=== PATIENT | male | born 1975 | race Caucasian/White ===

== ENCOUNTER 2025-07-03 15:17 | Inpatient (IN) | payer OTHER ==
[~2025-07-03] VITALS: Ht 170.2 cm; Wt 82.0 kg
[2025-07-03] MEDS ORDERED: DEXTROSE 50%-WATER 25 GM/50 ML SYRINGE IVP PRN (16:45)
[2025-07-03 17:01] LABS: PLATELET COUNT (AUTO) 255 K/uL (150-450); RED BLOOD CELL COUNT(AUTO) 4.73 MIL/uL (4.50-5.90); RED CELL DISTRIBUTION WIDTH 14.7 % (11.5-14.5); WHITE BLOOD COUNT (AUTO) 6.5 K/uL (4.5-11.0)
[2025-07-03 17:09] LABS: CALCIUM, TOTAL 9.1 mg/dL (8.8-10.5); CREATININE 0.76 mg/dL (0.60-1.30); GLOMERULAR FILTR. RATE CALC > 60 mL/min (>60); GLUCOSE,RANDOM 231 mg/dL (70-110); SODIUM SERUM 126 mmol/L (136-145); UREA NITROGEN, BLOOD 8 mg/dL (7-18)
[2025-07-03] MEDS ORDERED: OxyCODONE HCL/ACETAMINOPHEN 5-325 MG TABLET PO PRN (17:30)
[2025-07-03] MEDS ORDERED: MAGNESIUM HYDROXIDE SUSPENSION 30 ML UDCUP PO PRN (17:30)
[2025-07-03] MEDS ORDERED: ONDANSETRON HCL 4 MG/2 ML VIAL IVP PRN (17:30)
[2025-07-03] MEDS: DOCUSATE SODIUM 100 MG CAPSULE PO SCH (20:40)
[2025-07-03 20:55] LABS: APPEARANCE,URINE CLEAR (CLEAR); GLUCOSE, URINE (UA) 150-200 mg/dL (NEGATIVE); LEUKOCYTE ESTERASE ,URINE NEGATIVE (NEGATIVE); NITRATE,URINE NEGATIVE (NEGATIVE); OCCULT BLOOD,URINE NEGATIVE (NEGATIVE); SPECIFIC GRAVITIY, URINE 1.006 (1.003-1.030)
[2025-07-03 21:16] LABS: SQUAMOUS EPITHELIAL CELL,UR Rare /LPF (None Seen)
[2025-07-03] MEDS: INSULIN LISPRO 100 UNITS/ML SQ PRN (21:43)
[2025-07-03] MEDS: ZOLPIDEM TARTRATE 5 MG TABLET PO PRN (21:43)
[2025-07-03 21:56] VITALS: BP 155/106; PULSE 87; RESP 18; TEMP 98.1; O2SAT 98
[2025-07-03 22:56] LABS: GLUCOMETER DEV NAME(LOC) ER.7; GLUCOSE,POINT OF CARE 258 MG/DL (70-110)
[2025-07-03] MEDS: HEPARIN SODIUM,PORCINE 5,000 UNITS/ML VIAL SQ SCH (23:16)
[2025-07-03 23:21] VITALS: BP 155/99; PULSE 79; RESP 18; TEMP 97.7; O2SAT 95
[2025-07-04 03:33] VITALS: BP 120/80; PULSE 70; RESP 18; TEMP 97.3; O2SAT 98
[2025-07-04 05:16] LABS: GLUCOMETER DEV NAME(LOC) 5N.2C; GLUCOSE,POINT OF CARE 188 MG/DL (70-110)
[2025-07-04 06:40] LABS: CALCIUM, TOTAL 9.3 mg/dL (8.8-10.5); CREATININE 0.84 mg/dL (0.60-1.30); GLOMERULAR FILTR. RATE CALC > 60 mL/min (>60); GLUCOSE,RANDOM 190 mg/dL (70-110); SODIUM SERUM 131 mmol/L (136-145); UREA NITROGEN, BLOOD 10 mg/dL (7-18)
[2025-07-04 08:00] VITALS: BP 145/91; PULSE 78; RESP 18; TEMP 98.5; O2SAT 98
[2025-07-04] MEDS: FAMOTIDINE 20 MG TABLET PO SCH (09:11)
[2025-07-04 11:30] VITALS: BP 151/97; PULSE 70; RESP 18; TEMP 98.2; O2SAT 99
[2025-07-04 12:40] LABS: GLUCOMETER DEV NAME(LOC) 6S.1D; GLUCOSE,POINT OF CARE 247 MG/DL (70-110)
[2025-07-04 17:06] LABS: GLUCOMETER DEV NAME(LOC) 5N.1D; GLUCOSE,POINT OF CARE 200 MG/DL (70-110)
[2025-07-04 21:03] VITALS: BP 155/87; PULSE 74; RESP 18; TEMP 98.2; O2SAT 97
[2025-07-05 03:31] LABS: GLUCOMETER DEV NAME(LOC) 6N.2C; GLUCOSE,POINT OF CARE 288 MG/DL (70-110)
[2025-07-05 05:32] VITALS: BP 156/91; PULSE 74; RESP 18; TEMP 98.2; O2SAT 96
[2025-07-05 08:27] VITALS: BP 148/94; PULSE 78; RESP 19; TEMP 98.4; O2SAT 98
[2025-07-05 20:18] VITALS: BP 164/102; PULSE 76; RESP 20; TEMP 97.2; O2SAT 96
[2025-07-05] MEDS: ACETAMINOPHEN 325 MG TABLET PO PRN (20:38)
[2025-07-05 21:00] VITALS: BP 148/91; PULSE 78; RESP 20; TEMP 97.5; O2SAT 100
[2025-07-06 04:50] VITALS: BP 134/95; PULSE 70; RESP 20; TEMP 98.1; O2SAT 97
[2025-07-06 05:55] LABS: GLUCOMETER DEV NAME(LOC) 6S.1D; GLUCOSE,POINT OF CARE 225 MG/DL (70-110)
[2025-07-06 05:55] LABS: GLUCOMETER DEV NAME(LOC) 6S.2; GLUCOSE,POINT OF CARE 287 MG/DL (70-110)
[2025-07-06 05:55] LABS: GLUCOMETER DEV NAME(LOC) 6S.1D; GLUCOSE,POINT OF CARE 241 MG/DL (70-110)
[2025-07-06 07:30] LABS: GLUCOMETER DEV NAME(LOC) 6N.2C; GLUCOSE,POINT OF CARE 207 MG/DL (70-110)
[2025-07-06 08:46] VITALS: BP 137/90; PULSE 69; RESP 18; TEMP 97.7; O2SAT 97
[2025-07-06] MEDS ORDERED: ACET-2247 PO (11:31)
[2025-07-06] MEDS ORDERED: METF-1185 PO (11:31)
[2025-07-06] MEDS ORDERED: MAGN-169 PO (11:32)
[2025-07-06] MEDS ORDERED: INSU100V SQ (11:34)
[2025-07-06 17:45] LABS: GLUCOMETER DEV NAME(LOC) 6S.1D; GLUCOSE,POINT OF CARE 208 MG/DL (70-110)
[2025-07-06 17:51] LABS: GLUCOMETER DEV NAME(LOC) 6S.2; GLUCOSE,POINT OF CARE 220 MG/DL (70-110)
== END 2025-07-06 14:40 | DRG 74 ==
LOC: EMS 15:17 → EDH 17:18 → 5N 21:39 → 6S 07-04 10:30
PROVIDERS: ADMIT Internal Medicine; ATTEND Internal Medicine
DX: E11.610 Type 2 diabetes mellitus with diabetic neuropathic arthropathy (principal); E87.1 Hypo-osmolality and hyponatremia; Z83.3 Family history of diabetes mellitus
CPT/HCPCS: 73700; 80048; 81001; 82962; 83880; 85025; 93306; 93970; 96372; 99285; J1644

== ENCOUNTER 2025-09-11 18:12 | Emergency (ER) | payer OTHER ==
[~2025-09-11] VITALS: Ht 167.6 cm; Wt 81.0 kg
[~2025-09-11 18:12] MED LIST: ACET-2247 PO; INSU100V SQ; MAGN-169 PO; METF-1185 PO
[2025-09-11 18:26] VITALS: TEMP 98.5
[2025-09-11 19:54] LABS: PLATELET COUNT (AUTO) 340 K/uL (150-450); RED BLOOD CELL COUNT(AUTO) 4.62 MIL/uL (4.50-5.90); RED CELL DISTRIBUTION WIDTH 15.2 % (11.5-14.5); WHITE BLOOD COUNT (AUTO) 6.8 K/uL (4.5-11.0)
[2025-09-11 19:57] VITALS: BP 129/77; PULSE 73; RESP 17; O2SAT 98
[2025-09-11 20:00] LABS: CALCIUM, TOTAL 9.1 mg/dL (8.8-10.5); CREATININE 0.65 mg/dL (0.60-1.30); GLOMERULAR FILTR. RATE CALC > 60 mL/min (>60); GLUCOSE,RANDOM 162 mg/dL (70-110); SODIUM SERUM 138 mmol/L (136-145); UREA NITROGEN, BLOOD 8 mg/dL (7-18)
[2025-09-11 20:09] LABS: TROPONIN I-HIGH SENSITIVITY 27 ng/L (<76)
[2025-09-11 20:24] LABS: CREATINE KINASE, TOTAL ONLY 90 U/L (39-308)
== END 2025-09-12 06:00 ==
LOC: EMS 18:12
DX: E11.610 Type 2 diabetes mellitus with diabetic neuropathic arthropathy (principal); Z86.11 Personal history of tuberculosis; Z79.899 Other long term (current) drug therapy
CPT/HCPCS: 71045; 80048; 82550; 83880; 84484; 85025; 93005; 93971; 99285; 36415-L1; 36415-TC